=== PATIENT | female | born 2005 | race Caucasian/White ===

== ENCOUNTER 2025-03-29 13:51 | Emergency (ER) | payer OTHER, SELFPAY ==
[2025-03-29 14:17] VITALS: BP 134/79; PULSE 112; TEMP 37.7; O2SAT 99; BMI 38.5
--- OUTSIDE RECORDS SUMMARY | 2025-03-29 14:45 | XMS_ITS | Clinical Summary ---
Author Organization [facility] Address [address] [place] [address] Care Team Providers Care Weights And Measures Sealer Name Role Phone Unavailable Primary Care Provider Unavailabl e Allergies Active AllergyReactionsCriticalityNoted DateCommentsFlu Virus VaccineHives,Rash Low02/28/2024 Pt states she was 5 years old and her arms broke out in a rash and hives. Medications MedicationSigDispense QuantityRefillsLast FilledStart DateEnd DateStatus traMADol (Ultram) 50 MG tablet Indications:Calculus of gallbladder without cholecystitis without obstruction Take 1 tablet by mouth every 6 hours as needed for up to 4 days. 10 tablet 5Active Sertraline 50 MG tablet Take 1 tablet by mouth daily.Active Encounters DateTypeDepartmentCare KzniGuvdhtusogh84/06/2025Results Follow-Up [facility] Emergency Medicine [address] [place] [id number] Hellen Sewell RN CHLAMYDIA/GONOCOCCUS, PAM, URINE ALDBAXA9001/07/2025 8:30 AM EDT - 01/07/2025 9:13 AM EDTEmergency [facility] [address] [place] [address] Marck Stokes MD Discharge Disposition: Home or Self Care01/07/2025Travelfrom Last 3 Months Social History Tobacco UseTypesPacks/DayYears UsedDateSmoking Tobacco: NeverSmokeless Tobacco: Never Tobacco Cessation:Counseling Given: Not Answered CommentsUnknownSex and Gender InformationValueDate RecordedSex Assigned at BirthNot on fileLegal CxeJkpjgh55/13/2025 8:23 PM EDTGender IdentityNot on fileSexual OrientationNot on file Last Filed Vital Signs Vital SignReadingTime TakenCommentsBlood Gyegydws984/9501/07/2025 8:32 AM EDT Xigpm257901/07/2025 8:32 AM DWPYkaaigtcbjz77.9 ??C (98.4 ??F)01/07/2025 8:32 AM EDTRespiratory Ffaq9747 8:32 AM EDTOxygen Aimhhgszfm53%01/07/2025 8:32 AM EDTInhaled Oxygen Concentration--Weight--Dnalzf965.7 cm (5' 8 )09/15/2024 8:34 PM EDTBody Mass Index-- Plan of Treatment Health MaintenanceDue DateLast DoneCommentsHEPATITIS C VIRUS WVKRLZTKY38/21/2006 ZWAMTGR24 2005HIV SCREENING LSURCHQLTU76/21/2021HPV VACCINE ADOL (1 - 3-dose series)2020HPV VACCINE (1 - 3-dose series)2020HEP B VACCINE (1 of 3 - 19+ 3-dose series)2024TDAP (ADULT)2024OVID-19 VACCINE (2024- season)2024HLAMYDIA XEMWOW81GONORRHEA SCREEN PNEUMOCOCCAL VACCINE SERIESAged OutNo longer eligible based on patient's age to complete this topic Procedures Procedure NamePriorityDate/TimeAssociated DiagnosisCommentsURINE MICROSCOPIC Odhtdwo2501/07/2025 8:32 AM EDT HCG QUALITATIVE, GERGBUNFT48/05/2025 8:32 AM EDT URINALYSIS, ILYNJCNFP22/05/2025 8:32 AM EDT URINE APCXMSRXfttiny92/05/2025 8:32 AM EDT CHLAMYDIA/GONOCOCCUS, LXGVPAZ92/08/2024 8:32 AM EDT from Last 3 Months Results * CHLAMYDIA/GONOCOCCUS, PAM (01/07/2025 8:32 AM EDT)ComponentValueRef RangeTest MethodAnalysis TimePerformed AtPathologist SignatureCHLAMYDIA TRACHOMATISNOT DETECTEDNOT DETECTEDLAB, OSUNEISSERIA GONORRHOEAENOT DETECTEDNOT DETECTEDLAB, OSUComment:TESTING PERFORMED BY PCRSpecimen (Source)Anatomical Location / LateralityCollection Method / VolumeCollection TimeReceived TimeUrine (URINE FIRST CATCH)01/07/2025 8:32 AM EDT1 8:41 AM EDT Narrative Authorizing ProviderResult TypeResult StatusChris Kike MDMICROBIOLOGY - GENERAL ORDERABLESFinal ResultPerforming OrganizationAddressCity/State/ZIP Code Phone Number LAB, [facility] [address] [place] [address] * (ABNORMAL) URINALYSIS, MACRO (01/07/2025 8:32 AM EDT)ComponentValueRef Range Test MethodAnalysis TimePerformed AtPathologist SignatureColor, UrineDARK YELLOW(A)[facility] - [facility] [address] - [place]Appearance, UrineCLOUDY(A)[place] [address] - [place]Specific [place], Urine1.0251.010 - 1.025 [place] [address] - [place]PH URINE 7.05.0 - 7.0[place] [address] - [place]USUrine Protein>300(A)NEGATIVE mg/dlBUCUS ROBERT [place] [address] - [place]USGlucose, UrineNEGATIVENEGATIVE mg/dlBUCYRUS [place] [address] - [place]USKetones, Urine NEGATIVENEGATIVE mg/dlBUCYRUS [place] [address] - [place]USBILIRUBIN, URINENEGATIVENEGATIVEBUCYRUS [facility] - [address] - [place]BLOOD, URINE DIPSTICKSMALL(A)NEGATIVE [facility] - [address] - [place] Nitrites, UrineNEGATIVENEGCENTERVILLE - [address] - [place]USUrobilinogen, Urine0.20.2 - 1.0 E.U./dLBUCTWIN CITY HOSPITAL - [address] - [place]Leukocyte esterase, UrineSMALL(A)[facility] - [address] - [place]USSpecimen (Source)Anatomical Location / Laterality Collection Method / VolumeCollection TimeReceived Time01/07/2025 8:32 AM EDT 01/07/2025 8:41 AM EDT Narrative Authorizing ProviderResult TypeResult StatusMarck Stokes MDBODY FLUIDS & STOOLS ORDERABLESFinal ResultPerforming OrganizationAddressCity/State/ZIP Code Phone Number [facility] - [address] - [facility] [address] [place] [address] * (ABNORMAL) URINE MICROSCOPIC (01/07/2025 8:32 AM EDT)ComponentValueRef Range Test MethodAnalysis TimePerformed AtPathologist SignatureWBC, Urine'5 TO 10 NEGATIVE /HPFMARYMOUNT HOSPITAL - [address] - [place]RBC, Urine1 TO 5NEGATIVE /HPFMARYMOUNT [facility]OSPITAL - [address] - BUCYRUSEpithelial Cells UA5 TO 10/HPFMARYMOUNT HOSPITAL - [address] - BUC[place]USMucusNEGATIVE [facility] - [address] - [place] Bacteria, Urine1+(A)NEGATIVEMARYMOUNT HOSPITAL - [address] - [place]UC[place]USCRYSTALS, URINENONENONEMARYMOUNT HOSPITAL - [address] - [place]CASTS, URINENONENONE /LPFBUCUS [facility] - [address] - [place]USURINE OTHERYEASTMARYMOUNT HOSPITAL - [address] - [place]USCOMMENT, URINE REFLEX CULTURE PER ESTABLISHED CRITERIA.[facility] - [address] - [place]USSpecimen (Source)Anatomical Location / LateralityCollection Method / VolumeCollection TimeReceived Time01/07/2025 8:32 AM EDT1 8:41 AM EDT Narrative Authorizing ProviderResult TypeResult StatusChsolitario Stokes MDBODY FLUIDS & STOOLS ORDERABLESFinal ResultPerforming OrganizationAddressCity/State/ZIP Code Phone Number [facility] - [address] - [facility] [address] [place] [address] * URINE CULTURE (01/07/2025 8:32 AM EDT)ComponentValueRef RangeTest Method Analysis TimePerformed AtPathologist SignatureSPECIMEN DESCRIPTIONURINE CLEAN CATCHMARYMOUNT HOSPITAL - [address] - [place] QUANTITATION>100,000 C/C/ML[address]RESULT-CULTSTAPHYLOCOCCUS SAPROPHYTICUS[address]Comment:Testing performed at [place], [place] [address]Ctyzpj Otzydu3201/10/202553 [address] ST[address]ETComment:FINALORGANISM IDENTIFIEDSTAPHYLOCOCCUS SAPROPHYTICUS[address]pecimen (Source)Anatomical Location / LateralityCollection Method / VolumeCollection TimeReceived Time01/07/2025 8:32 AM EDT1 8:41 AM EDT Narrative OrganismAntibioticMethodSusceptibilityStaphylococcus saprophyticusGentamicinMIC (UG/ML/INTERP) <=0.5 SUSCEPTIBLE: Sensitive Staphylococcus saprophyticusNitrofurantoinMIC (UG/ML/INTERP) <=16 SUSCEPTIBLE: Sensitive Staphylococcus saprophyticusPENICILLIN GMIC (UG/ML/INTERP) RESISTANT: Resistant Staphylococcus saprophyticusRifampinMIC (UG/ML/INTERP) <=0.5 SUSCEPTIBLE: Sensitive Staphylococcus saprophyticusTetracyclineMIC (UG/ML/INTERP) <=1 SUSCEPTIBLE: Sensitive Staphylococcus saprophyticusTrimethoprim/SulfamethoxazolMIC (UG/ML/INTERP) <=10 SUSCEPTIBLE: Sensitive Staphylococcus saprophyticusVancomycinMIC (UG/ML/INTERP) 1 SUSCEPTIBLE: Sensitive Staphylococcus saprophyticusLevofloxacinMIC (UG/ML/INTERP) 0.5 SUSCEPTIBLE: Sensitive Staphylococcus saprophyticusOxacillinMIC (UG/ML/INTERP) 0.5 RESISTANT: Resistant Staphylococcus saprophyticusLinezolidMIC (UG/ML/INTERP) 2 SUSCEPTIBLE: Sensitive Staphylococcus saprophyticusInducible Clindamycin ResistanceMIC (UG/ML/INTERP) NEGATIVE: Susceptible Comment:STAPHYLOCOCCUS SAPROPHYTICUSAuthorizing ProviderResult TypeResult Status Marck [facility] MDMICROBIOLOGY - GENERAL ORDERABLESFinal ResultPerforming OrganizationAddressCity/State/ZIP CodePhone Number [facility] - [address] [facility] [address] [place] [address] [facility] - [address] - [place] [address] [place] [address] * HCG QUALITATIVE, URINE (01/07/2025 8:32 AM EDT)ComponentValueRef RangeTest MethodAnalysis TimePerformed AtPathologist SignatureHCG, QUALITATIVE, URINE NEGATIVEBUTRIHEALTH [facility] - [address] - [place] Specimen (Source)Anatomical Location / LateralityCollection Method / Volume Collection TimeReceived WnckLdswb94/05/2025 8:32 AM EDT1 8:41 AM EDT Narrative Authorizing ProviderResult TypeResult StatusMarck Stokes MDBODY FLUIDS & STOOLS ORDERABLESFinal ResultPerforming OrganizationAddressCity/State/ZIP Code Phone Number [facility] - [address] - [place] [address] [place] [address] from Last 3 Months Insurance
--- OUTSIDE RECORDS SUMMARY | 2025-03-29 14:45 | XMS_ITS | Clinical Summary ---
Author Organization [facility] Address [address] [place] [address] Care Team Providers Care Screw Machine Hand Name Role Phone Daren Mckeon MD Primary Care Provider + Allergies Active AllergyReactionsCriticalityNoted DateCommentsFlu Vaccine Wv4370-27(5 Yr,Up)Hives,EgqcUzz5502/28/2024 Pt states she was 5 years old and her arms broke out in a rash and hives. Medications MedicationSigDispense QuantityRefillsLast FilledStart DateEnd DateStatus sertraline (Zoloft) 50 MG tablet Indications: depressionTake 1 (one) tablet (50 mg total) by mouth daily . 30 tablet 60/5Active norelgestromin-ethinyl estradiol (ORTHO EVRA) 150-35 mcg/24 hr patch Indications:Encounter for surveillance of transdermal patch hormonal contraceptive devicePlace 1 (one) patch on the skin once a week One new patch per week x three weeks; then off for one week (menses week) . 3 patch 1204//004678/6Active norgestimate-ethinyl estradioL (Sprintec, 28,) 0.25-0.035 mg per tablet Indications:Encounter for initial prescription of contraceptive pillsTake 1 (one) tablet by mouth daily . 30 tablet 110//634431/6Active Active Problems Patient Care Coordination No te Formatting of this note migh t be different from the original. Boy Wic not yet Ped- unsure ProblemNoted DateDiagnosed DateBlood type O+05/09/2024Elevated blood pressure reading without diagnosis of hypertensionHemorrhoidsOverweight (BMI 25.0-29.9) Resolved Problems ProblemNoted DateDiagnosed DateResolved DatePrimigravida, third trimester High risk teen in third hrlfawpij18/04/20250 weeks gestation of ghhumeqvq78nxiety during in third trimester, wbtbsfyfcj29/04/202508/06/2024Non-reassuring electronic monitoring jbeszho91/rrest of dilation, delivered, current rnkxufukmlzhbfj98Pregnancy05/08/2024 07/03/2024 Family History Medical HistoryRelationCommentsEpilepsyFatherHypertensionFatherBreast cancer Maternal GrandmotherDepressionMotherCancerOther 1OtherOther 2twin Breast cancerPaternal GrandmotherLung diseaseSisterRelationStatusCommentsFather Maternal GrandmotherAliveMotherOther 1Other 2Paternal GrandmotherAliveSister Social History Tobacco UseTypesPacks/DayYears UsedDateSmoking Tobacco: FormerCigarettes Smokeless Tobacco: Never Tobacco Cessation:Counseling Given: Not Answered Alcohol UseStandard Drinks/WeekCommentsNever0 (1 standard drink = 0.6 oz pure alcohol)[facility] UtilitiesAnswerDate RecordedIn the past 12 months has the [employer], gas, oil, or water [employer] threatened to shut off services in your home?No 05/10/2024Humiliation, Afraid, Rape, and Kick questionnaireAnswerDate Recorded Within the last year, have you been afraid of your partner or ex-partner?No 05/10/2024Within the last year, have you been humiliated or emotionally abused in other ways by your partner or ex-partner?No05/10/2024Within the last year, have you been kicked, hit, slapped, or otherwise physically hurt by your partner or ex-partner?No05/10/2024Within the last year, have you been raped or forced to have any kind of sexual activity by your partner or ex-partner?No05/10/2024 Overall Financial Resource Strain (CARDIA)AnswerDate RecordedHow hard is it for you to pay for the very basics like food, housing, medical care, and heating?Not very hard05/10/2024Hunger Vital SignAnswerDate RecordedWithin the past 12 months, you worried that your food would run out before you got the money to buy more.Never true05/10/2024Within the past 12 months, the food you bought just didn't last and you didn't have money to get more.Never true05/10/2024PRAPARE - TransportationAnswerDate RecordedIn the past 12 months, has lack of transportation kept you from medical appointments or from getting medications?No 05/10/2024In the past 12 months, has lack of transportation kept you from meetings, work, or from getting things needed for daily living?No05/10/2024 Housing Stability Vital SignAnswerDate RecordedIn the last 12 months, was there a time when you were not able to pay the mortgage or rent on time?No05/10/2024In the past 12 months, how many times have you moved where you were living?2 05/10/2024t any time in the past 12 months, were you homeless or living in a usp (including now)?No05/10/2024CommentsNoSex and Gender Information ValueDate RecordedSex Assigned at BirthNot on fileLegal CzrIgzeaz04/26/2014 3:47 PM EDTGender IdentityNot on fileSexual OrientationNot on file Last Filed Vital Signs Vital SignReadingTime TakenCommentsBlood Cloqmrdw129/7903 1:48 PM EDT Fuwtp389505/12/2024 11:37 AM CZJCesfytlehvr05.6 ??C (97.8 ??F)05/12/2024 11:37 AM ESTRespiratory Glno103905/12/2024 11:37 AM ESTOxygen Ypkynalfsw14%05/12/2024 11:37 AM ESTInhaled Oxygen Concentration--Rmgypn74.9 kg (196 lb)07/03/2024 1:48 PM EDT Vvjauc265.7 cm (5' 8 )05/08/2024 8:38 PM ESTBody Mass Index29.802 8:38 PM ESTBody Mass Index Hqrckjdyqr79.91%07/03/2024 1:48 PM EDTGrowth Chart: CDC (Girls, 2-20 Years) Plan of Treatment Health MaintenanceDue DateLast DoneCommentsChlamydia Zbetpfeef62/21/2006 Hepatitis A Vaccines (2 of 2 - 2-dose series)Depression Screening/Follow-Up (PHQ-2/9)2017HPV Vaccines (2 - 2-dose series) HIV Wgwgsyxke63/21/2021Meningococcal ACWY Vaccine (2 - 2- dose series)Meningococcal B Vaccine (1 of 2 - Standard) 2021Wellness VisitHepatitis C Ullhvlngo59/21/2024 COVID-19 Vaccine (1 - season)2024Influenza Vaccine (#1)2024 Tetanus/Diphtheria/Pertussis (6 - Td or Tdap), 11/25/2010, 05/04/2006, Additional history existsZoster Vaccines (1 of 2)10/24/2055RSV Vaccines (1 - 1-dose 75+ series)2080HIB VaccinesAged Out05/04/2006, 03/02/2006, 2005No longer eligible based on patient's age to complete this topicHepatitis B SyrmpvjvYbspdezfg18/30/2007, 2005, 2005Pneumococcal VaccineAged Out05/04/2006, 03/02/2006, 2005No longer eligible based on patient's age to complete this topicRotavirus QuqgtipbDjqllizjd37/30/2007, 03/02/2006, 2005IPV CeynrdqqMzlfbzgto21/23/2011, 05/04/2006, 03/02/2006, Additional history existsMMR XgwaspkcUmhanprfs38/29/2011, 11/25/2010Varicella PlwrgrfjRjysotquy15/29/2011, 11/25/2010 Insurance * Guarantor: SUNDAR KNOXccjosh TypeRelation to PatientDate of BirthPhone Billing AddressPersonal/RvacquHmxwpu49/02/1985 [address] [place] [address] Advance Directives For more information, please contact: [phone] * Full Code (Latest Code Status on File) Date ActivatedDate InactivatedComments05/10/2024 3:08 AM05/12/2024 4:33 PM * Full Code Date ActivatedDate InactivatedComments05/09/2024 10:56 PM2 3:08 AM * Full Code Date ActivatedDate InactivatedComments05/08/2024 9:36 PM2 10:56 PM * Full Code Date ActivatedDate UtehtifxddpGggpvybk53/25/2024 11:33 AM02/28/2024 3:46 PM Care Teams Team MemberRelationshipSpecialtyStart DateEnd Date Daren Mckeon MD [address] [facility] [address] [place] [address] [facility]04/16/15
[2025-03-29 14:53] LABS: SARS-CoV-2 Ag NEGATIVE (NEGATIVE)
[2025-03-29 15:06] VITALS: BP 117/95; PULSE 107; O2SAT 100
--- NOTE | 2025-03-29 16:43 | ED.GENADUL1 ---
HPI HPI - General Adult General Chief complaint: Fever Stated complaint: FEVER, Time Seen by Provider: 03/29/25 14:15 Source: patient Mode of arrival: walk-in History of Present Illness HPI narrative: Patient is a previously healthy 19-year-old female with no chronic medical conditions presenting to the emergency department URI symptoms x 2 days. Patient has a cough, congestion, nausea, myalgias, and bodyaches for the last 2 days. She denies chest pain or shortness breath. No fevers or chills. No vomiting, constipation, diarrhea. No dysuria. Related Data Home Medications ?Medication ?Instructions ?Recorded ?Confirmed No Known Home Medications 03/29/25 03/29/25 Allergies Allergy/AdvReac Type Severity Reaction Status Date / Time influenza vaccine Allergy Hives Uncoded 03/29/25 14:17 Review of Systems ROS Status of ROS 10 or more systems reviewed and unremarkable except as noted in history and below PFSH PFSH Social History Little interest or pleasure in doing things: not at all Feeling down, depressed, or hopeless: not at all Exam Narrative Exam Narrative: CONSTITUTIONAL: Appears ill but nontoxic, answering questions and following commands appropriately SKIN: Was warm and dry. EYES: Sclerae white. EARS, NOSE, THROAT: Moist oral mucosa. Mild pharyngeal edema without tonsil hypertrophy or exudates. No trismus. No peritonsillar abscess. RESPIRATORY: Clear to auscultation bilaterally, no wheezes, crackles, or stridor, no use of accessory muscles CARDIOVASCULAR: Tachycardic rate and regular rhythm. There is no S3, S4, murmur, rub. GASTROINTESTINAL: Abdomen is nondistended. MUSCULOSKELETAL: No peripheral edema. NEUROLOGIC: Patient is awake and alert. Facies were symmetrical. Constitutional Vital Signs, click to edit/add: Last Vital Signs Temp 99.8 F 03/29/25 14:17 Pulse 107 H 03/29/25 15:06 Resp 18 03/29/25 15:06 BP 117/95 H 03/29/25 15:06 Pulse Ox 100 03/29/25 15:06 O2 Del Method Room Air 03/29/25 15:06 Course Vital Signs Vital signs: Vital Signs Temperature 99.8 F 03/29/25 14:17 Pulse Rate 112 H 03/29/25 14:17 Respiratory Rate 20 03/29/25 14:17 Blood Pressure 134/79 03/29/25 14:17 Pulse Oximetry 99 03/29/25 14:17 Oxygen Delivery Method Room Air 03/29/25 14:17 Temperature 99.8 F 03/29/25 14:17 Pulse Rate 107 H 03/29/25 15:06 Respiratory Rate 18 03/29/25 15:06 Blood Pressure 117/95 H 03/29/25 15:06 Pulse Oximetry 100 03/29/25 15:06 Oxygen Delivery Method Room Air 03/29/25 15:06 Medical Decision Making [facility] Narrative Medical decision making narrative: Patient is a previously healthy 19-year-old female with no chronic medical conditions presenting to the emergency department with 2-day history of flulike symptoms. Her vital signs on arrival are significant for mild tachycardia, otherwise within normal limits. She is afebrile and hemodynamically stable. She saturate 100% on room air with clear breath sounds bilaterally and in no acute respiratory distress. Overall, the patient appears ill but nontoxic. She appears well-hydrated. My clinical impression is that the patient symptoms are secondary to a viral URI, viral syndrome. I did consider pneumonia, however the patient has clear/equal breath sounds bilaterally, is not hypoxic, and overall looks non-toxic and well-hydrated. Vital signs are positive for influenza A. I do believe the patient is stable for discharge. They were instructed to follow up with her PCP for further care. Return precautions were given including any new or worsening symptoms. Patient understands and agrees to the plan. FINAL IMPRESSION: #Acute influenza A infection DISPOSITION: Discharged home CONDITION: Good Lab Data Lab results reviewed: Yes I reviewed the patient's lab results Labs: Lab Results 03/29/25 Range/Units 14:29 Influenza Type A Ag Positive A Influenza Type B Ag Negative SARS-CoV-2 Ag (CV2AG) Negative (NEGATIVE) Discharge Plan Discharge Chief Complaint: Fever Clinical Impression: Influenza A Patient Disposition: Home, Self-Care Time of Disposition Decision: 14:58 Condition: Good Mode of Transportation: Private Vehicle Prescriptions / Home Meds: No Action No Known Home Medications Print Language: Bolivian Instructions: Influenza (ED) Referrals: Physician,Non-Staff, MD [Primary Care Provider] - 1 week Discharge Date/Time: 03/29/25 15:08
== END 2025-03-29 15:08 | disposition home or self-care (01) ==
PROVIDERS: Emergency Provider Student in an Organized Health Care Education/Training Program
DX: J10.1 Influenza due to other identified influenza virus with other respiratory manifestations (principal); R05.9 Cough, unspecified; R11.0 Nausea; R09.81 Nasal congestion
CPT/HCPCS: 87804; 87811; 99283